=== PATIENT | male | born 1940 | race Caucasian/White ===

== ENCOUNTER 2016-04-30 21:19 | Inpatient (IN) | payer BC, MEDICARE ==
[~2016-04-30] VITALS: Ht 185.4 cm; Wt 123.4 kg
[2016-04-30 22:02] LABS: GLUCOSE,URINE NEGATIVE (NEG); NITRITE,URINE NEGATIVE (NEG); PROTEIN,URINE NEGATIVE (NEG-TRACE)
[2016-04-30 22:09] LABS: BILIRUBIN,URINE NEGATIVE (NEG)
[2016-04-30 22:12] LABS: BACTERIA,URINE 0 /HPF (0-FEW); RBC,URINE 0 /HPF (0-2); SQUAMOUS EPITHELIAL CELL,UR FEW /LPF; WBC,URINE RARE /HPF (0-4)
[2016-04-30] MEDS ORDERED: ONDANSETRON PF 4 MG/2 ML VIAL. IV ONE (22:15)
[2016-04-30] MEDS ORDERED: FENTANYL PF 100 MCG/2 ML VIAL. IV ONE (22:15)
[2016-04-30 22:16] LABS: BASO # 0.1 x10^3/uL (0.0-0.2); BASO % 1 % (0-3); EOS % 5 % (0-3); HEMATOCRIT 47.5 % (39.0-53.0); HEMOGLOBIN 15.3 g/dL (13.0-17.5); LYMPH # 1.8 x10^3/uL (1.0-4.8); LYMPH % 18 % (24-48); MEAN CORPUSCULAR HEMOGLOBIN 28 pg (25-35); MEAN CORPUSCULAR HGB CONC 32 g/dL (31-37); MEAN CORPUSCULAR VOLUME 87 fL (79-100); MONO % 10 % (0-9); NEUT % 65 % (31-73); PLATELET COUNT 286 x10^3/uL (140-400); RED BLOOD COUNT 5.44 x10^6/uL (4.30-5.70); RED CELL DISTRIBUTION WIDTH 15.4 % (11.5-14.5); WHITE BLOOD COUNT 9.9 x10^3/uL (4.0-11.0)
[2016-04-30 22:26] LABS: CALCIUM 8.8 mg/dL (8.5-10.1); CREATININE 0.9 mg/dL (0.7-1.3); GFR 82.3; POTASSIUM 3.4 mmol/L (3.5-5.1)
[2016-04-30] MEDS ORDERED: CONTRAST GIVEN MC PRN (22:45)
[2016-04-30] MEDS ORDERED: HYDROMORPHONE 2 MG/ML VIAL. IV ONE (23:00)
[2016-04-30] MEDS ORDERED: IOHEXOL 300 MG/ML 75 ML VIAL IV ONE (23:00)
--- NOTE | 2016-04-30 23:03 | RAD ---
PROCEDURE CT abdomen pelvis with intravenous contrast. HISTORY Severe left flank pain for 1 week. TECHNIQUE After administration of intravenous contrast only, 75 mL Omnipaque 300, CT of the abdomen and pelvis was performed. Exposure: One or more of the following individualized dose reduction techniques were utilized for this examination: 1. Automated exposure control. 2. Adjustment of the mA and/or kV according to patient size. 3. Use of iterative reconstruction technique. COMPARISON CT abdomen pelvis from April 07, 2015. FINDINGS Evaluation of enteric structures may be limited by lack of oral contrast. Images of lower chest demonstrate small pulmonary nodules with the largest in the right middle lobe measuring 6 millimeters, unchanged. Aortic valve calcifications are present. Liver, spleen, pancreas, gallbladder, and bilateral adrenal glands unremarkable. Bilateral kidneys enhance symmetrically. Interpolar region of the left kidney demonstrates 1.3 centimeter low-density lesion which appears to be cyst. Aortic atherosclerosis is seen. Urinary bladder is unremarkable. Prostate is mildly enlarged. There is no evidence of bowel obstruction or inflammation. Appendix is without evidence of inflammation. Fat containing right inguinal hernia. There is a left inguinal hernia containing fat and a portion of the sigmoid colon. There is no evidence of colonic obstruction by the hernia. Small fat containing umbilical hernia is also present. There is interval development of lymphadenopathy within the abdomen. A few examples include the largest right peripancreatic lymph node measures 2.2 x 2.5 centimeters in axial dimension. Largest right infrarenal aortocaval lymph node measures 2.9 x 1.4 centimeters in axial dimension. Left infrarenal periaortic lymph node measures 2.9 x 1.8 centimeters. In the root of the mesentery adjacent to and to the right of the superior mesenteric vein, there is a lymph ricky mass measuring 6.8 x 4.3 centimeters. More laterally in the right aspect of the mesentery, there is another lymph ricky mass measuring about 5.8 x 3.7 centimeters. IMPRESSION 1. Interval development of lymphadenopathy in the abdomen and pelvis. Neoplastic process is suspected such as lymphoma. Recommend clinical correlation. 2. Left inguinal hernia containing fat and sigmoid colon, similar to previous study. There is no evidence of bowel obstruction at this time. 3. Fat containing right inguinal hernia. 4. Small hiatal hernia. Electronically signed by: Eben Roman MD (Apr 30, 2016 23:02:50)
--- NOTE | 2016-04-30 23:09 | PHYS DOC ---
Past Medical History Past Medical History: High Cholesterol, Hypertension Additional Past Medical Histor: HEART MURMUR Past Surgical History: Knee Replacement Additional Past Surgical Histo: NECK SURGERY Alcohol Use: Rarely Drug Use: None Adult General Chief Complaint Chief Complaint: GENERALIZED BODY ACHES HPI HPI This is a 75-year-old male who presents with worsening lower back pain that he says is worse in the left flank region for the last week. Patient was in to see his primary care doctor, Dr. Rene, who thought the patient might be having muscle spasms for which she prescribed a course of muscle relaxants. Patient states this has not helped his pain whatsoever. He denies any trauma to the area. He denies any heavy lifting or straining that could cause his pain. He denies any radiation of the pain. He denies any inciting events for his pain he states he feels the same at rest or with exertion. Denies any nausea or vomiting. He denies any dysuria or hematuria. He additionally is being treated for an ongoing sinusitis for which she was prescribed Augmentin and Phenergan with codeine cough syrup. Review of Systems Review of Systems Constitutional: Denies fever or chills [] Eyes: Denies change in visual acuity, redness, or eye pain [] HENT: Denies nasal congestion or sore throat [] Respiratory: Denies cough or shortness of breath [] Cardiovascular: No additional information not addressed in HPI [] GI: Denies abdominal pain, nausea, vomiting, bloody stools or diarrhea [] : Denies dysuria or hematuria [] Musculoskeletal: Has back pain, denies joint pain [] Integument: Denies rash or skin lesions [] Neurologic: Denies headache, focal weakness or sensory changes [] Endocrine: Denies polyuria or polydipsia [] Current Medications Current Medications Current Medications Medications (Trade) Dose Ordered Sig/Hiro Start Time Stop Time Status Last Admin Dose Admin Acetaminophen (Tylenol) 650 mg PRN Q4HRS PRN 04/30/16 23:30 05/01/16 23:29 Fentanyl Citrate (Fentanyl 2ml Vial) 50 mcg 1X ONCE 04/30/16 22:15 04/30/16 22:16 DC 04/30/16 22:11 50 MCG Hydromorphone HCl (Dilaudid) 1 mg 1X ONCE 04/30/16 23:00 04/30/16 23:01 DC 04/30/16 23:00 1 MG Info (Do NOT chart on this entry -- for MONITORING) 1 each PRN DAILY PRN 04/30/16 22:45 05/02/16 22:44 Iohexol (Omnipaque 300 Mg/ml) 75 ml 1X ONCE 04/30/16 23:00 04/30/16 23:01 DC 04/30/16 22:41 75 ML Morphine Sulfate 4 mg PRN Q2HR PRN 04/30/16 23:30 05/01/16 23:29 Nitroglycerin (Nitrostat) 0.4 mg PRN Q5MIN PRN 04/30/16 23:30 05/01/16 23:29 Ondansetron HCl (Zofran) 4 mg PRN Q8HRS PRN 04/30/16 23:30 05/01/16 23:29 Allergies Allergies Allergies Coded Allergies Type Severity Reaction Last Updated Verified No Known Drug Allergies 07/03/13 No Physical Exam Physical Exam Constitutional: Well developed, well nourished, no acute distress, non-toxic appearance. [] HENT: Normocephalic, atraumatic, bilateral external ears normal, oropharynx moist, no oral exudates, nose normal. [] Eyes: PERRLA, EOMI, conjunctiva normal, no discharge. [] Neck: Normal range of motion, no tenderness, supple, no stridor. [] Cardiovascular:Heart rate regular rhythm, no murmur [] Lungs & Thorax: Bilateral breath sounds clear to auscultation [] Abdomen: Bowel sounds normal, soft, no tenderness, no masses, no pulsatile masses. [] Skin: Warm, dry, no erythema, no rash. [] Back: Moderate tenderness to the left lower back with no palpable swelling or deformity, moderate left CVA tenderness. [] Extremities: No tenderness, no cyanosis, no clubbing, ROM intact, no edema. [] Neurologic: Alert and oriented X 3, normal motor function, normal sensory function, no focal deficits noted. [] Psychologic: Affect normal, judgement normal, mood normal. [] Current Patient Data Vital Signs Vital Signs Date Time Temp Pulse Resp B/P Pulse Ox O2 Delivery O2 Flow Rate FiO2 04/30/16 23:00 20 04/30/16 22:32 84 138/81 92 Room Air 04/30/16 21:24 97.8 97.8 Lab Values Laboratory Tests Test 04/30/16 21:35 04/30/16 22:08 Urine Collection Type Unknown Urine Color Yellow Urine Clarity Clear Urine pH 6.0 Urine Specific [place] 1.025 Urine Protein Negativemg/dL (NEG-TRACE) Urine Glucose (UA) Negativemg/dL (NEG) Urine Ketones (Stick) Negativemg/dL (NEG) Urine Blood Negative (NEG) Urine Nitrite Negative (NEG) Urine Bilirubin Negative (NEG) Urine Urobilinogen Dipstick 1.0mg/dL (0.2 mg/dL) Urine Leukocyte Esterase Negative (NEG) Urine RBC 0/HPF (0-2) Urine WBC Rare/HPF (0-4) Urine Squamous Epithelial Cells Few/LPF Urine Bacteria 0/HPF (0-FEW) Urine Hyaline Casts Occasional/HPF Urine Mucus Marked/LPF White Blood Count 9.9x10^3/uL (4.0-11.0) Red Blood Count 5.44x10^6/uL (4.30-5.70) Hemoglobin 15.3g/dL (13.0-17.5) Hematocrit 47.5% (39.0-53.0) Mean Corpuscular Volume 87fL (79-100) Mean Corpuscular Hemoglobin 28pg (25-35) Mean Corpuscular Hemoglobin Concent 32g/dL (31-37) Red Cell Distribution Width 15.4% (11.5-14.5) H Platelet Count 286x10^3/uL (140-400) Neutrophils (%) (Auto) 65% (31-73) Lymphocytes (%) (Auto) 18% (24-48) L Monocytes (%) (Auto) 10% (0-9) H Eosinophils (%) (Auto) 5% (0-3) H Basophils (%) (Auto) 1% (0-3) Neutrophils # (Auto) 6.5x10^3uL (1.8-7.7) Lymphocytes # (Auto) 1.8x10^3/uL (1.0-4.8) Monocytes # (Auto) 1.0x10^3/uL (0.0-1.1) Eosinophils # (Auto) 0.5x10^3/uL (0.0-0.7) Basophils # (Auto) 0.1x10^3/uL (0.0-0.2) Sodium Level 146mmol/L (136-145) H Potassium Level 3.4mmol/L (3.5-5.1) L Chloride Level 107mmol/L (98-107) Carbon Dioxide Level 28mmol/L (21-32) Anion Gap 11 (6-14) Blood Urea Nitrogen 16mg/dL (8-26) Creatinine 0.9mg/dL (0.7-1.3) Estimated GFR (Cockcroft-Gault) 82.3 Glucose Level 112mg/dL (70-99) H Calcium Level 8.8mg/dL (8.5-10.1) Troponin I Quantitative 0.019ng/mL (0.000-0.055) Laboratory Tests 04/30/16 22:08 Laboratory Tests 04/30/16 22:08 EKG EKG EKG as interpreted by me shows a sinus rhythm with an occasional PVC and an approximate rate of 84 bpm. There are no obvious signs of ischemia on this EKG. Radiology/Procedures Radiology/Procedures CT of the abdomen/pelvis with IV contrast demonstrates the following: Evaluation of enteric structures may be limited by lack of oral contrast. Images of lower chest demonstrate small pulmonary nodules with the largest in the right middle lobe measuring 6 millimeters, unchanged. Aortic valve calcifications are present. Liver, spleen, pancreas, gallbladder, and bilateral adrenal glands unremarkable. Bilateral kidneys enhance symmetrically. Interpolar region of the left kidney demonstrates 1.3 centimeter low-density lesion which appears to be cyst. Aortic atherosclerosis is seen. Urinary bladder is unremarkable. Prostate is mildly enlarged. There is no evidence of bowel obstruction or inflammation. Appendix is without evidence of inflammation. Fat containing right inguinal hernia. There is a left inguinal hernia containing fat and a portion of the sigmoid colon. There is no evidence of colonic obstruction by the hernia. Small fat containing umbilical hernia is also present. There is interval development of lymphadenopathy within the abdomen. A few examples include the largest right peripancreatic lymph node measures 2.2 x 2.5 centimeters in axial dimension. Largest right infrarenal aortocaval lymph node measures 2.9 x 1.4 centimeters in axial dimension. Left infrarenal periaortic lymph node measures 2.9 x 1.8 centimeters. In the root of the mesentery adjacent to and to the right of the superior mesenteric vein, there is a lymph ricky mass measuring 6.8 x 4.3 centimeters. More laterally in the right aspect of the mesentery, there is another lymph ricky mass measuring about 5.8 x 3.7 centimeters. Course & Med Decision Making Course & Med Decision Making Pertinent Labs and Imaging studies reviewed. (See chart for details) 75-year-old male with ongoing left lower back pain that does radiate across his low back will receive a CT scan to rule out any acute abnormality. His labwork at this time is nonrevealing for any acute cause of his symptoms. Patient has required several IV doses of pain control to control his symptoms. His CT the abdomen pelvis with IV contrast has findings that are suspicious for neoplastic process and possible lymphoma. His case and these findings were discussed with the hospitalist, Dr. Michel, who agreed that the patient should be admitted and have hematology oncology consult. The patient will be admitted with as needed pain medication to get these findings fully evaluated. Dragon Disclaimer Dragon Disclaimer This electronic medical record was generated, in whole or in part, using a voice recognition dictation system. Departure Departure Impression: Primary Impression: Back pain Additional Impression: Lymphadenopathy Disposition: ADMITTED INPATIENT Admitting Physician: Other Condition: STABLE Referrals: EAMON KERR MD (PCP) Problem Qualifiers PRUDENCIO SOLIMAN DO Apr 30, 2016 23:08
[2016-04-30] MEDS ORDERED: ONDANSETRON PF 4 MG/2 ML VIAL. IV PRN (23:30)
[2016-04-30] MEDS ORDERED: MORPHINE SULFATE 4 MG/ML DISP.SYRIN. IV PRN (23:30)
[2016-04-30] MEDS ORDERED: NITROGLYCERIN SUBLINGUAL 0.4 MG BOTTLE OF 25. SL PRN (23:30)
[2016-04-30] MEDS ORDERED: ACETAMINOPHEN 325 MG TABLET. PO PRN (23:30)
[2016-05-01] VITALS (16 sets, daily range): BP systolic 126–172; BP diastolic 72–98
--- NOTE | 2016-05-01 00:08 | ACF ---
Admission Forms Criteria BACK PAIN Clinical Indications for Admission to Inpatient Care (Place 'X' for any and all applicable criteria): Admission is indicated for ANY ONE of the following (1)(2)(3)(4)(5)(6): [X ]I. Inpatient admission required rather than observation care (Also use Back Pain: Observation Care as appropriate) because of ANY ONE of the following [ X]a) Severe pain requiring acute inpatient management [ ]b) Immediate inpatient surgery [ ]c) Other condition, treatment or monitoring requiring inpatient admission [ ]II. Spine fracture with significant damage or threat of damage to vertebral column or spinal cord [ ]III. Progressive or severe neurologic deficit [ ]IV. Suspected spinal infection (e.g., epidural abscess, vertebral osteomyelitis)(10) [ ]V. Suspected cause requires inpatient treatment (eg, aortic dissection) [ ]. Cauda equina syndrome as indicated by ANY ONE of the following (9): [ ]a) Bowel dysfunction [ ]b) Bladder dysfunction [ ]c) Saddle anesthesia [ ]d) Neurologic abnormality suggesting cauda equina impingement Extended stay beyond goal length of stay may be needed for (3)(25): [ ]a) Spinal cord compression from stenosis, disk, or tumor (8)(9) [ ]b) Traumatic or pathologic vertebral fracture (33) [ ]c) Vertebral infection(10) [ ]d) Severe pain that is difficult to control [ ]e) Older patients(65 years or older) The original [employer] content created by [employer] has been revised. The portions of the content which have been revised are identified through the use of italic text or in bold, and [facility] has neither reviewed nor approved the modified material. All other unmodified content is copyright [employer]. Please see references footnoted in the original [employer] edition 2016 Admission Criteria Met?: Yes ARACELY LEWIS May 01, 2016 00:08
[2016-05-01 05:51] LABS: BASO # 0.1 x10^3/uL (0.0-0.2); BASO % 1 % (0-3); EOS % 6 % (0-3); HEMATOCRIT 46.3 % (39.0-53.0); HEMOGLOBIN 14.8 g/dL (13.0-17.5); LYMPH # 1.6 x10^3/uL (1.0-4.8); LYMPH % 17 % (24-48); MEAN CORPUSCULAR HEMOGLOBIN 28 pg (25-35); MEAN CORPUSCULAR HGB CONC 32 g/dL (31-37); MEAN CORPUSCULAR VOLUME 88 fL (79-100); MONO % 11 % (0-9); NEUT % 66 % (31-73); PLATELET COUNT 288 x10^3/uL (140-400); RED BLOOD COUNT 5.25 x10^6/uL (4.30-5.70); RED CELL DISTRIBUTION WIDTH 15.5 % (11.5-14.5); WHITE BLOOD COUNT 9.5 x10^3/uL (4.0-11.0)
[2016-05-01 06:32] LABS: ALBUMIN 3.4 g/dL (3.4-5.0); DIRECT BILIRUBIN 0.2 mg/dL (0.0-0.2); TOTAL BILIRUBIN 0.8 mg/dL (0.2-1.0); URIC ACID 4.7 mg/dL (3.5-7.2)
[2016-05-01 06:38] LABS: CALCIUM 8.6 mg/dL (8.5-10.1); CREATININE 0.8 mg/dL (0.7-1.3); GFR 94.2; POTASSIUM 3.6 mmol/L (3.5-5.1)
--- NOTE | 2016-05-01 06:41 | EKG ---
[facility] [address] [place] [address] Test Date: 2016-04-30 Test Time: 22:11:11 Pat Name: JORDAN AGUAYO Department: Room: 526 1 Gender: M [employer] Professor: : 1940 Requested By: PRUDENCIO SOLIMAN Order Number: [id number] Reading MD: Chasity Henson Measurements Intervals [place] Rate: 84 P: -22 CA: 142 QRS: 35 QRSD: 98 T: 58 QT: 398 QTc: 474 Interpretive Statements SINUS RHYTHM VENTRICULAR PREMATURE COMPLEX(ES) LEFT ATRIAL ABNORMALITY ABNORMAL ECG Electronically Signed On 05-03-2016 20:07:11 [employer] by Chasity Henson
[2016-05-01] MEDS ORDERED: ALBUTEROL SULFATE 2.5 MG/3 ML NEBU. NEB PRN (08:15)
[2016-05-01 08:38] LABS: INR 1.2 (0.8-1.1); PROTHROMBIN TIME PATIENT 14.2 SEC (11.7-14.0)
[2016-05-01] MEDS: FINASTERIDE 5 MG TABLET PO SCH (08:57)
[2016-05-01] MEDS: PANTOPRAZOLE 40 MG TABLET. PO SCH (08:57)
[2016-05-01] MEDS: AMLODIPINE BESYLATE 10 MG TABLET PO SCH (08:58)
[2016-05-01] MEDS ORDERED: IOHEXOL 300 MG/ML 75 ML VIAL IV ONE (09:00)
[2016-05-01] MEDS ORDERED: CONTRAST GIVEN MC PRN (09:00)
--- NOTE | 2016-05-01 09:04 | PDOC ---
Provider Note Provider Note Onc consult dictated- [id number] Diffuse abdominal adenopathy concerning for malignancy Left inguinal hernia with worsening pain Plan: - LDH, uric acid, hepatitis panel, LFTs ordered - CT chest - IR bx - Gen surg consult Ok to DC when above completed. My office will call to set up f/u late next week to review path. Pt eager to DC. Thank you. ZAC DAMIAN DO May 01, 2016 09:04
--- NOTE | 2016-05-01 09:47 | PDOC1 ---
History and Physical Date of Admission Date of Admission DATE: 04/30/16 Identification/Chief Complaint Chief Complaint Back Pain Source Source: Patient History of Present Illness History of Present Illness Pt states that he came to the emergency room last night because of 1 week's duration of low back pain. Pain does not radiate. Denies sciatica. Pt was found in the ER to have mesenteric lymphadenopathy and bilateral inguinal hernias. Pt says that the he has had decreased appetite over the last 2 weeks, nasal congestion with clear drainage, cough with clear productive sputum. He says that he has otherwise been doing well. Past Medical History Cardiovascular: HTN, Hyperlipidemia, Other (Mild aortic stenosis) Pulmonary: Asthma GI: No pertinent hx Heme/Onc: No pertinent hx Hepatobiliary: No pertinent hx Psych: No pertinent hx Musculoskeletal: low back pain Rheumatologic: No pertinent hx Infectious disease: No pertinent hx ENT: No pertinent hx Renal/: No pertinent hx Endocrine: No pertinent hx Dermatology: No pertinent hx Past Surgical History Past Surgical History: Total knee replacement, Other (neck surgery) Family History Family History: Heart Disease, Other (Aneurysm) Social History Smoke: No ALCOHOL: none Drugs: None Current Problem List Problem List Problems Medical Problems: (1) Back pain Status: Acute (2) Lymphadenopathy Status: Acute Problems: Current Medications Current Medications Current Medications Fentanyl Citrate (Fentanyl 2ml Vial) 50 mcg 1X ONCE IV Last administered on 22:11; Start 04/30/16 at 22:15; Stop 04/30/16 at 22:16; Status DC Ondansetron HCl (Zofran) 4 mg 1X ONCE IV Last administered on 04/30/16 22:12 ; Start 04/30/16 at 22:15; Stop 04/30/16 at 22:16; Status DC Iohexol (Omnipaque 300 Mg/ml) 75 ml 1X ONCE IV Last administered on 04/30/16 22:41; Start 04/30/16 at 23:00; Stop 04/30/16 at 23:01; Status DC Info (Do NOT chart on this entry -- for MONITORING) 1 each PRN DAILY PRN MC SEE COMMENTS; Start 04/30/16 at 22:45; Stop 05/02/16 at 22:44 Hydromorphone HCl (Dilaudid) 1 mg 1X ONCE IV Last administered on 04/30/16 23 :00; Start 04/30/16 at 23:00; Stop 04/30/16 at 23:01; Status DC Ondansetron HCl (Zofran) 4 mg PRN Q8HRS PRN IV NAUSEA/VOMITING; Start 04/30/16 at 23:30; Stop 05/01/16 at 23:29 Morphine Sulfate 4 mg PRN Q2HR PRN IV SEVERE PAIN; Start 04/30/16 at 23:30; Stop 05/01/16 at 23:29 Acetaminophen (Tylenol) 650 mg PRN Q4HRS PRN PO FEVER; Start 04/30/16 at 23:30 ; Stop 05/01/16 at 23:29 Nitroglycerin (Nitrostat) 0.4 mg PRN Q5MIN PRN SL CHEST PAIN; Start 04/30/16 at 23:30; Stop 05/01/16 at 23:29 Albuterol Sulfate (Ventolin Neb Soln) 2.5 mg PRN Q6HRS PRN NEB SHORTNESS OF BREATH; Start 05/01/16 at 08:15 Finasteride (Proscar) 5 mg DAILY PO Last administered on 05/01/16 08:57; Start 05/01/16 at 09:00 Pantoprazole Sodium (Protonix) 40 mg DAILYAC PO Last administered on 05/01/16 08:57; Start 05/01/16 at 08:30 Atorvastatin Calcium (Lipitor) 20 mg QHS PO ; Start 05/01/16 at 21:00 Amlodipine Besylate (Norvasc) 10 mg DAILY PO Last administered on 05/01/16 08: 58; Start 05/01/16 at 09:00 Iohexol (Omnipaque 300 Mg/ml) 75 ml 1X ONCE IV Last administered on 05/01/16 09:13; Start 05/01/16 at 09:00; Stop 05/01/16 at 09:01; Status DC Info (Do NOT chart on this entry -- for MONITORING) 1 each PRN DAILY PRN MC SEE COMMENTS; Start 05/01/16 at 09:00; Stop 05/03/16 at 08:59 Allergies Allergies: Coded Allergies: No Known Drug Allergies (Unverified , 07/03/13) ROS General: YES: Appetite, No: Chills, Night Sweats PSYCHOLOGICAL ROS: No: Anxiety, Depression Eyes: No Decreased vision, No Eye Pain HEENT: YES: Nasal congestion, Nasal discharge, No: Sinus pain, Sore Throat ALLERGY AND IMMUNOLOGY: No: Hives, Post Nasal Drip Hematological and Lymphatic: No: Bleeding Problems, Blood Clots Respiratory: YES: Cough, No: Shortness of breath, Sputum Changes, Wheezing Cardiovascular: No Chest Pain, No Edema Gastrointestinal: No Abdominal Pain, No Constipation, No Diarrhea, No Nausea, No Vomiting Genitourinary: No Dysuria, No Urgency Musculoskeletal: No Joint Pain, No Muscle Pain Neurological: No Numbness/Tingling, No Weakness Skin: No Rash, No Skin Lesion Changes Physical Exam General: Alert, Oriented X3, Cooperative, No acute distress HEENT: Atraumatic, PERRLA, EOMI, Mucous membr. moist/pink Lungs: Clear to auscultation, Normal air movement Heart: RRR, other (systolic ejection murmur heard throughout) Abdomen: Normal bowel sounds, Soft, No tenderness, No hepatosplenomegaly Extremities: No clubbing, No cyanosis, No edema Skin: No rashes, No significant lesion Neuro: Normal gait, Normal speech, Cranial nerves 3-12 NL Psych/Mental Status: Mental status NL, Mood NL Vitals Vitals Vital Signs Date Time Temp Pulse Resp B/P Pulse Ox O2 Delivery O2 Flow Rate FiO2 05/01/16 08:58 84 172/98 05/01/16 07:49 Room Air 92.0 05/01/16 07:00 98.8 20 91 98.8 Labs Labs Laboratory Tests Test 04/30/16 21:35 04/30/16 22:08 05/01/16 04:50 Urine Collection Type Unknown Urine Color Yellow Urine Clarity Clear Urine pH 6.0 Urine Specific [place] 1.025 Urine Protein Negativemg/dL (NEG-TRACE) Urine Glucose (UA) Negativemg/dL (NEG) Urine Ketones (Stick) Negativemg/dL (NEG) Urine Blood Negative (NEG) Urine Nitrite Negative (NEG) Urine Bilirubin Negative (NEG) Urine Urobilinogen Dipstick 1.0mg/dL (0.2 mg/dL) Urine Leukocyte Esterase Negative (NEG) Urine RBC 0/HPF (0-2) Urine WBC Rare/HPF (0-4) Urine Squamous Epithelial Cells Few/LPF Urine Bacteria 0/HPF (0-FEW) Urine Hyaline Casts Occasional/HPF Urine Mucus Marked/LPF White Blood Count 9.9x10^3/uL (4.0-11.0) 9.5x10^3/uL (4.0-11.0) Red Blood Count 5.44x10^6/uL (4.30-5.70) 5.25x10^6/uL (4.30-5.70) Hemoglobin 15.3g/dL (13.0-17.5) 14.8g/dL (13.0-17.5) Hematocrit 47.5% (39.0-53.0) 46.3% (39.0-53.0) Mean Corpuscular Volume 87fL (79-100) 88fL (79-100) Mean Corpuscular Hemoglobin 28pg (25-35) 28pg (25-35) Mean Corpuscular Hemoglobin Concent 32g/dL (31-37) 32g/dL (31-37) Red Cell Distribution Width 15.4% (11.5-14.5) 15.5% (11.5-14.5) Platelet Count 286x10^3/uL (140-400) 288x10^3/uL (140-400) Neutrophils (%) (Auto) 65% (31-73) 66% (31-73) Lymphocytes (%) (Auto) 18% (24-48) 17% (24-48) Monocytes (%) (Auto) 10% (0-9) 11% (0-9) Eosinophils (%) (Auto) 5% (0-3) 6% (0-3) Basophils (%) (Auto) 1% (0-3) 1% (0-3) Neutrophils # (Auto) 6.5x10^3uL (1.8-7.7) 6.3x10^3uL (1.8-7.7) Lymphocytes # (Auto) 1.8x10^3/uL (1.0-4.8) 1.6x10^3/uL (1.0-4.8) Monocytes # (Auto) 1.0x10^3/uL (0.0-1.1) 1.0x10^3/uL (0.0-1.1) Eosinophils # (Auto) 0.5x10^3/uL (0.0-0.7) 0.5x10^3/uL (0.0-0.7) Basophils # (Auto) 0.1x10^3/uL (0.0-0.2) 0.1x10^3/uL (0.0-0.2) Sodium Level 146mmol/L (136-145) 145mmol/L (136-145) Potassium Level 3.4mmol/L (3.5-5.1) 3.6mmol/L (3.5-5.1) Chloride Level 107mmol/L (98-107) 108mmol/L (98-107) Carbon Dioxide Level 28mmol/L (21-32) 27mmol/L (21-32) Anion Gap 11 (6-14) 10 (6-14) Blood Urea Nitrogen 16mg/dL (8-26) 14mg/dL (8-26) Creatinine 0.9mg/dL (0.7-1.3) 0.8mg/dL (0.7-1.3) Estimated GFR (Cockcroft-Gault) 82.3 94.2 Glucose Level 112mg/dL (70-99) 99mg/dL (70-99) Calcium Level 8.8mg/dL (8.5-10.1) 8.6mg/dL (8.5-10.1) Troponin I Quantitative 0.019ng/mL (0.000-0.055) Prothrombin Time 14.2SEC (11.7-14.0) Prothromb Time International Ratio 1.2 (0.8-1.1) Uric Acid 4.7mg/dL (3.5-7.2) Total Bilirubin 0.8mg/dL (0.2-1.0) Direct Bilirubin 0.2mg/dL (0.0-0.2) Aspartate Amino Transf (AST/SGOT) 18U/L (15-37) Alanine Aminotransferase (ALT/SGPT) 19U/L (16-63) Alkaline Phosphatase 85U/L (46-116) Lactate Dehydrogenase 582U/L (85-227) Total Protein 7.0g/dL (6.4-8.2) Albumin 3.4g/dL (3.4-5.0) Laboratory Tests Test 04/30/16 21:35 04/30/16 22:08 05/01/16 04:50 Urine Collection Type Unknown Urine Color Yellow Urine Clarity Clear Urine pH 6.0 Urine Specific [place] 1.025 Urine Protein Negativemg/dL (NEG-TRACE) Urine Glucose (UA) Negativemg/dL (NEG) Urine Ketones (Stick) Negativemg/dL (NEG) Urine Blood Negative (NEG) Urine Nitrite Negative (NEG) Urine Bilirubin Negative (NEG) Urine Urobilinogen Dipstick 1.0mg/dL (0.2 mg/dL) Urine Leukocyte Esterase Negative (NEG) Urine RBC 0/HPF (0-2) Urine WBC Rare/HPF (0-4) Urine Squamous Epithelial Cells Few/LPF Urine Bacteria 0/HPF (0-FEW) Urine Hyaline Casts Occasional/HPF Urine Mucus Marked/LPF White Blood Count 9.9x10^3/uL (4.0-11.0) 9.5x10^3/uL (4.0-11.0) Red Blood Count 5.44x10^6/uL (4.30-5.70) 5.25x10^6/uL (4.30-5.70) Hemoglobin 15.3g/dL (13.0-17.5) 14.8g/dL (13.0-17.5) Hematocrit 47.5% (39.0-53.0) 46.3% (39.0-53.0) Mean Corpuscular Volume 87fL (79-100) 88fL (79-100) Mean Corpuscular Hemoglobin 28pg (25-35) 28pg (25-35) Mean Corpuscular Hemoglobin Concent 32g/dL (31-37) 32g/dL (31-37) Red Cell Distribution Width 15.4% (11.5-14.5) 15.5% (11.5-14.5) Platelet Count 286x10^3/uL (140-400) 288x10^3/uL (140-400) Neutrophils (%) (Auto) 65% (31-73) 66% (31-73) Lymphocytes (%) (Auto) 18% (24-48) 17% (24-48) Monocytes (%) (Auto) 10% (0-9) 11% (0-9) Eosinophils (%) (Auto) 5% (0-3) 6% (0-3) Basophils (%) (Auto) 1% (0-3) 1% (0-3) Neutrophils # (Auto) 6.5x10^3uL (1.8-7.7) 6.3x10^3uL (1.8-7.7) Lymphocytes # (Auto) 1.8x10^3/uL (1.0-4.8) 1.6x10^3/uL (1.0-4.8) Monocytes # (Auto) 1.0x10^3/uL (0.0-1.1) 1.0x10^3/uL (0.0-1.1) Eosinophils # (Auto) 0.5x10^3/uL (0.0-0.7) 0.5x10^3/uL (0.0-0.7) Basophils # (Auto) 0.1x10^3/uL (0.0-0.2) 0.1x10^3/uL (0.0-0.2) Sodium Level 146mmol/L (136-145) 145mmol/L (136-145) Potassium Level 3.4mmol/L (3.5-5.1) 3.6mmol/L (3.5-5.1) Chloride Level 107mmol/L (98-107) 108mmol/L (98-107) Carbon Dioxide Level 28mmol/L (21-32) 27mmol/L (21-32) Anion Gap 11 (6-14) 10 (6-14) Blood Urea Nitrogen 16mg/dL (8-26) 14mg/dL (8-26) Creatinine 0.9mg/dL (0.7-1.3) 0.8mg/dL (0.7-1.3) Estimated GFR (Cockcroft-Gault) 82.3 94.2 Glucose Level 112mg/dL (70-99) 99mg/dL (70-99) Calcium Level 8.8mg/dL (8.5-10.1) 8.6mg/dL (8.5-10.1) Troponin I Quantitative 0.019ng/mL (0.000-0.055) Prothrombin Time 14.2SEC (11.7-14.0) Prothromb Time International Ratio 1.2 (0.8-1.1) Uric Acid 4.7mg/dL (3.5-7.2) Total Bilirubin 0.8mg/dL (0.2-1.0) Direct Bilirubin 0.2mg/dL (0.0-0.2) Aspartate Amino Transf (AST/SGOT) 18U/L (15-37) Alanine Aminotransferase (ALT/SGPT) 19U/L (16-63) Alkaline Phosphatase 85U/L (46-116) Lactate Dehydrogenase 582U/L (85-227) Total Protein 7.0g/dL (6.4-8.2) Albumin 3.4g/dL (3.4-5.0) VTE Prophylaxis Ordered VTE Prophylaxis Devices: Yes VTE Pharmacological Prophylaxi: No Assessment/Plan Assessment/Plan Pt is a 75yoM admitted with concerns for neoplasm 1)Unknown neoplasm- CT abdomen showed lymphadenopathy in the abdomen/pelvis with concern for possible lymphoma, and is now s/p bx. Heme/Onc following. Pt has morphine for pain relief 2)HLD- pt continued on Atorvastatin 20mg 3)HTN- pt continued on Norvasc 10mg. Losartan 100mg currently being held 4)Hypernatremia- resolved 5)Hypokalemia- resolved 6)Inguinal hernias bilateral- incarcerated left inguinal hernia repair performed today by AMEE Weaver MD May 01, 2016 09:47
[2016-05-01] MEDS ORDERED: CEFAZOLIN 2GM PREMIX 50 ML IV ONE (12:30)
[2016-05-01] MEDS ORDERED: IV RINGERS,LACTATED 1000ML 1,000 ML IV SCH (12:59)
[2016-05-01] MEDS ORDERED: PROCHLORPERAZINE 10 MG/2 ML VIAL. IV PRN (13:00)
[2016-05-01] MEDS ORDERED: HYDROMORPHONE 2 MG/ML VIAL. IV PRN (13:00)
[2016-05-01] MEDS ORDERED: FENTANYL PF 100 MCG/2 ML VIAL. IV PRN ×2 (13:00)
[2016-05-01] MEDS ORDERED: ONDANSETRON PF 4 MG/2 ML VIAL. IV PRN (13:00)
[2016-05-01] MEDS ORDERED: LIDOCAINE 1% 1 ML SYRINGE. ID PRN (13:00)
[2016-05-01] MEDS ORDERED: MORPHINE SULFATE 2 MG/ML DISP.SYRIN. IV PRN (13:00)
[2016-05-01] MEDS ORDERED: MIDAZOLAM HCL 2 MG/2 ML VIAL. ONE (13:22)
[2016-05-01] MEDS ORDERED: BUPIVACAINE-EPI 0.5%-1:200000 50 ML VIAL. ONE (13:23)
[2016-05-01] MEDS ORDERED: GELATIN SPONGE SIZE 12-7MM SPONGE. ONE (13:42)
[2016-05-01] MEDS ORDERED: FENTANYL PF 100 MCG/2 ML VIAL. IV ONE (13:45)
[2016-05-01] MEDS ORDERED: MIDAZOLAM HCL 2 MG/2 ML VIAL. IV ONE (13:45)
[2016-05-01] MEDS ORDERED: LIDOCAINE 1% / SOD BICARB 8.4% 20 ML VIAL. IJ ONE (13:45)
--- NOTE | 2016-05-01 13:51 | PDOC ---
BRIEF OPERATIVE NOTE Pre-Op Diagnosis mesenteric lymphadenopathy Post-Op Diagnosis same Procedure Performed CT mesenteric biopsy Surgeon Lonnie Anesthesia Type: Conscious Sedation Specimens Obtained 4 x 18g cores in formalin and rpmi Complications No immediate EDIN DOTY MD May 01, 2016 13:51
--- NOTE | 2016-05-01 13:52 | PDOC ---
MODERATE SEDATION ASSESSMENT RISKS/ALTERNATIVES Risks/Alternatives Risks and alternatives of this type of sedation and procedure discussed with: RISK/ALTERNATIVES: Patient H & P ON CHART H & P H & P on chart and reviewed for co-morbid conditions and appropriate labs. H&P ON CHART: Yes STATUS PREG STATUS ASSESSED: Yes MEDS/ALLERGIES REVIEWED Meds/Allergies Reviewed Medications and Allergies including time and route of recently administered narcotics and sedatives. MEDS/ALLERGIES REVIEWED: Yes ASA RATING ASA RATING: II AIRWAY ASSESSMENT Airway Assessment Airway patency, oral function limitations, presence of caps, crowns, dentures, partials, and ability to extend neck assessed. AIRWAY ASSESSMENT: Yes MALLAMPATI SCORE MALLAMPATI SCORE: II PRE-SEDATION ASSESSMENT PRE-SEDATION ASSESSMENT: Yes EDIN DOTY MD May 01, 2016 13:51
--- NOTE | 2016-05-01 14:06 | RAD ---
Chest CT with contrast Indications: Abdominal lymphadenopathy seen on abdomen and pelvis CT study dated April 30, 2016. Staging of lymphoma. Technique: After IV infusion of 75 mL of Omnipaque 300, helical CT scanning of the chest was performed. Multiplanar 2-D reconstructions were generated. PQRS Compliance Statement: One or more of the following individualized dose reduction techniques were utilized for this examination: 1. Automated exposure control 2. Adjustment of the mA and KV according to patient size 3. Use of iterative reconstruction technique Comparison: No previous chest CT. Findings: No enlarged axillary lymphadenopathy is seen. No significantly enlarged mediastinal lymph nodes are seen. No hilar lymphadenopathy is seen. No focal aneurysmal dilatation or dissection of the thoracic aorta is seen. The heart size is normal. Calcified atheromatous disease of the coronary arteries is seen. There is calcification of the aortic leaflets which may be seen with aortic valvular disease. No pericardial effusion is seen. No lung consolidation or lung mass is seen. No pleural effusion or pneumothorax is seen. The proximal bronchial tree is patent. Old healed right second and 6tht rib fractures are seen. No osteolytic process is seen. IMPRESSION: No thoracic lymphadenopathy. Calcified atheromatous disease of the coronary arteries. Calcification of aortic valve leaflets which may be seen with aortic valvular disease. Normal heart size. No pericardial effusion. No acute lung infiltrate.
[2016-05-01] MEDS ORDERED: FENTANYL PF 250 MCG/5 ML VIAL. ONE (14:10)
[2016-05-01] MEDS ORDERED: ROCURONIUM 50 MG/5 ML VIAL. ONE (14:14)
[2016-05-01] MEDS ORDERED: ONDANSETRON PF 4 MG/2 ML VIAL. ONE (14:14)
[2016-05-01] MEDS ORDERED: DEXAMETHASONE SOD PHOS 20 MG/5 ML VIAL. ONE (14:14)
[2016-05-01] MEDS ORDERED: LIDOCAINE 2% 100 MG/5 ML DISP.SYRIN. ONE (14:14)
[2016-05-01] MEDS ORDERED: PROPOFOL 20 ML IV ONE ×2 (14:14→15:29)
[2016-05-01] MEDS ORDERED: PHENYLEPHRINE in 0.9% NACL PF 1 MG/10 ML DISP.SYRIN. IV ONE (14:32)
[2016-05-01] MEDS ORDERED: SEVOFLURANE 61 TO 120 MINUTES. IH ONE (14:32)
[2016-05-01] MEDS ORDERED: EPHEDRINE PF IN SALINE 50 MG/5 ML DISP.SYRIN. IV ONE (14:40)
[2016-05-01] MEDS ORDERED: LIDOCAINE 2% JELLY 6ML IN APPLICATOR. MM ONE (15:37)
--- NOTE | 2016-05-01 16:04 | PDOC ---
BRIEF OPERATIVE NOTE Date: May 01, 2016 Pre-Op Diagnosis incarcerated left inguinal hernia Post-Op Diagnosis same, indirect Procedure Performed repair with mesh Surgeon Jose Anesthesia Type: General Blood Loss 25cc IV Fluid 1200cc Urine Output 250cc Specimens Obtained none Findings indirect hernia Complications none Additional Remarks # [id number] KAELYN MORFIN MD May 01, 2016 16:04
--- NOTE | 2016-05-01 16:48 | OP ---
DATE OF SURGERY: 05/01/2016 PREOPERATIVE DIAGNOSIS: Incarcerated left inguinal hernia. POSTOPERATIVE DIAGNOSIS: Incarcerated left inguinal hernia, indirect. PROCEDURE: Repair with mesh. SURGEON: Kaelyn Morfin MD ANESTHESIA: General. ESTIMATED BLOOD LOSS: 25. IV FLUID: 1200. URINE OUTPUT: 250. INDICATIONS: The patient is a 75-year-old obese male with left inguinal pain and a CT scan showing a left inguinal hernia containing sigmoid colon. He is brought for repair. OPERATIVE FINDINGS: He had an indirect inguinal hernia containing abdominal contents. DESCRIPTION OF PROCEDURE: The patient brought to the operating suite, given a general LMA and the abdomen was prepped and draped in usual sterile fashion. Marcaine 0.5% with epinephrine was used to infiltrate the skin and subcutaneous tissue along the incision line. Incision was made and dissection carried down to the external oblique fascia. Bleeders were cauterized or tied as identified. The fascia was opened in the direction of its fibers, extended through the external ring, taking care to avoid injury to underlying structures. The cord structures were swept off the pubis. A Brunswick drain placed around it and the large indirect hernia sac was freed from the remainder of the cord, skeletonized, and reduced. This was held in reduction with a plug of mesh, tacked with 2-0 PDS, taking care to avoid injury to adjacent vessels. The precut "keyhole" patch was then placed over the floor of the canal. The slit closed with a single 2-0 PDS stitch and the area checked for adequate hemostasis. ____ and a correct sponge count had been obtained. The cord was returned to its normal anatomical position and the external oblique fascia closed over in running fashion with 3-0 Vicryl. Subq approximated with 3-0 Vicryl. Skin closed with subcuticular 4-0 Monocryl. Steri-Strips and sterile dressing applied. Prior to emergence from anesthesia, digital rectal exam revealed a small firm, non-nodular prostate. At completion of the procedure, the Mars catheter drainage bag was empty. The catheter was removed and some blood appeared at the meatus. In light of this, a 16-Yoruba coude catheter was placed to assure drainage of the patient's bladder and immediately delivered approximately 250 mL of slightly bloody urine. The catheter was left to dependent drainage. The patient was awakened from his anesthetic and taken to the recovery room in satisfactory condition. KAELYN MORFIN MD DR: NAE/gurmeet JOB#: [id number] / [id number]
--- NOTE | 2016-05-01 17:54 | RAD ---
Procedure: CT-guided abdominal biopsy Clinical Indication: 75-year-old with multiple mesenteric and retroperitoneal lymph nodes which are pathologically enlarged. Sedation: Conscious sedation was administered for 20 minutes. The patient was monitored by a qualified independent observer throughout the time of sedation. Please refer to the medical record for exact doses of medications utilized to achieve moderate sedation. Antibiotics: None Sterility: The procedure was performed in its entirety using appropriate elements of sterile technique. Consent: The procedure was explained in its entirety to the patient or the patients designated commercial representative by a member of the treatment team, including a discussion of the risks, benefits and commonly accepted alternatives to the procedure, as well as the expected consequences of no therapy whatsoever. Discussion of the risks included, but was not limited to, those that are most frequent and those that are rare but possibly severe or life-threatening, as well as the possibility of unforeseen complications. Technique and Findings: Following informed consent, the patient was prepped and draped in usual sterile fashion. Preliminary CT scan of the area of interest was performed. 1% lidocaine was used to achieve local anesthesia. A small dermatotomy was made. Under periodic CT surveillance, a 17-gauge needle guide was advanced to the dominant mass in the central mesentery. 4 x 18-gauge core biopsy specimens were then obtained and divided between formalin and RPMI. Gelfoam pledgets were applied as the needle guide was removed and hemostasis was achieved with manual compression. Complications: No immediate Impression: 1. CT-guided abdominal lymph node biopsy as described PQRS Compliance Statement: One or more of the following individualized dose reduction techniques were utilized for this examination: 1. Automated exposure control 2. Adjustment of the mA and/or kV according to patient size 3. Use of iterative reconstruction technique
[2016-05-01] MEDS ORDERED: ATORVASTATIN CALCIUM 20 MG TABLET PO SCH (21:00)
--- NOTE | 2016-05-01 21:27 | CONS ---
DATE OF CONSULTATION: 05/01/2016 REFERRING PROVIDER: Dr. Whit Damian. REASON FOR CONSULTATION: Adenopathy. HISTORY OF PRESENT ILLNESS: The patient is a 75-year-old male who presented to the Emergency Room last night with back pain for 1 week. He also reports chronic dizziness over the last several months when he has a lot of activity, sitting down to rest helps it. He has not had any fevers, chills, unintentional weight loss, notable adenopathy or abdominal pain. His CT abdomen/pelvis in the Emergency Room showed new diffuse adenopathy with some areas measuring up to 6.8 cm in the abdominal region. This was all new since his last scan in 03/2015. He was also noted to have a non-incarcerated left inguinal hernia; however, he does report worsening intermittent pain in this area. PAST MEDICAL HISTORY: Hypertension, hyperlipidemia. PAST SURGICAL HISTORY: Hammertoe surgery, neck surgery, left knee replacement, and TURP. FAMILY HISTORY: Mom with "heart problems." Dad with an aneurysm. Brother had prostate cancer, but is still alive and well. SOCIAL HISTORY: He is , very active at baseline, retired from [employer]. No tobacco, alcohol or drug use. ALLERGIES: No known drug allergies. CURRENT MEDICATIONS: Tylenol, albuterol, Norvasc, atorvastatin, finasteride, morphine, nitroglycerin, Zofran, pantoprazole. REVIEW OF SYSTEMS: A 12-point review of systems completed and unremarkable with the exception of the back pain for 1 week. This is now controlled with pain medications this admission. He also has had some intermittent left groin pain. Otherwise, his review of systems is negative. PHYSICAL EXAMINATION: VITAL SIGNS: Temperature 98.8, pulse 84, respiratory rate 20, blood pressure 143/82, 91% O2 on room air. GENERAL: He is alert and oriented, in no distress at this time. HEENT: Extraocular muscle strength is intact. Mucous membranes are moist. CARDIOVASCULAR: Heart is regular in rhythm and rate. LUNGS: Clear to auscultation bilaterally. ABDOMEN: Obese, nontender, no palpable masses. EXTREMITIES: No edema. NEUROLOGIC: No focal deficits. LYMPH: No palpable cervical or supraclavicular adenopathy. SKIN: He does have several seborrheic keratoses on his back with also a few erythematous papules. IMAGING AND LABORATORY DATA: CBC and CMP were unremarkable. I added on uric acid, which is also normal at 4.3. LDH slightly elevated at 582. CT abdomen/pelvis again reviewed with new adenopathy as above. ASSESSMENT AND PLAN: The patient is a 75-year-old male with the following medical problems: 1. Diffuse abdominal adenopathy concerning for possible underlying malignancy such as lymphoma. I have ordered a CT chest for full staging and also an IR-guided biopsy of one of lymph nodes which I think will occur today. If these tests are completed, he can be discharged home as his pain is now controlled and I will set up followup with him late next week to review the pending pathology results. 2. Left inguinal hernia with worsening intermittent pain. I have consulted general surgery. 3. Back pain, controlled with current pain medications. Thank you for this consultation. Again, from a hematologic standpoint, he can be discharged once these tests are completed and I will follow up as an outpatient next week. ZAC DAMIAN DO DR: Alex JOB#: [id number] / [id number] KARON
[2016-05-01 22:13] LABS: HEP A IGM ABDY Negative (Negative)
[2016-05-02] MEDS ORDERED: MORPHINE SULFATE 4 MG/ML DISP.SYRIN. IV PRN (00:15)
[2016-05-02 03:47] VITALS: BP 130/75
[2016-05-02 06:08] LABS: CALCIUM 8.4 mg/dL (8.5-10.1); CREATININE 0.7 mg/dL (0.7-1.3); GFR 109.9; POTASSIUM 4.1 mmol/L (3.5-5.1)
[2016-05-02] MEDS: MORPHINE SULFATE 4 MG/ML DISP.SYRIN. IV PRN ×2 (06:30→09:14)
[2016-05-02 07:00] VITALS: BP 143/71
[2016-05-02] MEDS: PANTOPRAZOLE 40 MG TABLET. PO SCH (08:17)
[2016-05-02] MEDS: AMLODIPINE BESYLATE 10 MG TABLET PO SCH (08:18)
[2016-05-02] MEDS: FINASTERIDE 5 MG TABLET PO SCH (08:18)
--- NOTE | 2016-05-02 09:40 | PDOC ---
SURGICAL PROGRESS NOTE Subjective tolerating regular diet no nausea incisional pain Vital Signs Vital Signs Date Time Temp Pulse Resp B/P Pulse Ox O2 Delivery O2 Flow Rate FiO2 05/02/16 09:14 20 Room Air 05/02/16 08:18 67 143/71 05/02/16 07:00 98.0 93 98.0 05/01/16 22:51 3.5 I&O Intake and Output 05/02/16 07:00 Intake Total 1470 ml Output Total 980 ml Balance 490 ml Intake Oral 120 ml IV Total 1350 ml Output Urine Total 935 ml Drainage Total 20 ml Estimated Blood Loss 25 ml # Bowel Movements 1 General: Alert, Oriented X3, Cooperative, No acute distress Abdomen: Soft, Other (LIH repair dressing dry) Labs Laboratory Tests Test 04/30/16 21:35 04/30/16 22:08 05/01/16 04:50 05/02/16 04:55 Urine Collection Type Unknown Urine Color Yellow Urine Clarity Clear Urine pH 6.0 Urine Specific Olar 1.025 Urine Protein Negativemg/dL (NEG-TRACE) Urine Glucose (UA) Negativemg/dL (NEG) Urine Ketones (Stick) Negativemg/dL (NEG) Urine Blood Negative (NEG) Urine Nitrite Negative (NEG) Urine Bilirubin Negative (NEG) Urine Urobilinogen Dipstick 1.0mg/dL (0.2 mg/dL) Urine Leukocyte Esterase Negative (NEG) Urine RBC 0/HPF (0-2) Urine WBC Rare/HPF (0-4) Urine Squamous Epithelial Cells Few/LPF Urine Bacteria 0/HPF (0-FEW) Urine Hyaline Casts Occasional/HPF Urine Mucus Marked/LPF White Blood Count 9.9x10^3/uL (4.0-11.0) 9.5x10^3/uL (4.0-11.0) Red Blood Count 5.44x10^6/uL (4.30-5.70) 5.25x10^6/uL (4.30-5.70) Hemoglobin 15.3g/dL (13.0-17.5) 14.8g/dL (13.0-17.5) Hematocrit 47.5% (39.0-53.0) 46.3% (39.0-53.0) Mean Corpuscular Volume 87fL (79-100) 88fL (79-100) Mean Corpuscular Hemoglobin 28pg (25-35) 28pg (25-35) Mean Corpuscular Hemoglobin Concent 32g/dL (31-37) 32g/dL (31-37) Red Cell Distribution Width 15.4% (11.5-14.5) 15.5% (11.5-14.5) Platelet Count 286x10^3/uL (140-400) 288x10^3/uL (140-400) Neutrophils (%) (Auto) 65% (31-73) 66% (31-73) Lymphocytes (%) (Auto) 18% (24-48) 17% (24-48) Monocytes (%) (Auto) 10% (0-9) 11% (0-9) Eosinophils (%) (Auto) 5% (0-3) 6% (0-3) Basophils (%) (Auto) 1% (0-3) 1% (0-3) Neutrophils # (Auto) 6.5x10^3uL (1.8-7.7) 6.3x10^3uL (1.8-7.7) Lymphocytes # (Auto) 1.8x10^3/uL (1.0-4.8) 1.6x10^3/uL (1.0-4.8) Monocytes # (Auto) 1.0x10^3/uL (0.0-1.1) 1.0x10^3/uL (0.0-1.1) Eosinophils # (Auto) 0.5x10^3/uL (0.0-0.7) 0.5x10^3/uL (0.0-0.7) Basophils # (Auto) 0.1x10^3/uL (0.0-0.2) 0.1x10^3/uL (0.0-0.2) Sodium Level 146mmol/L (136-145) 145mmol/L (136-145) 140mmol/L (136-145) Potassium Level 3.4mmol/L (3.5-5.1) 3.6mmol/L (3.5-5.1) 4.1mmol/L (3.5-5.1) Chloride Level 107mmol/L (98-107) 108mmol/L (98-107) 104mmol/L (98-107) Carbon Dioxide Level 28mmol/L (21-32) 27mmol/L (21-32) 28mmol/L (21-32) Anion Gap 11 (6-14) 10 (6-14) 8 (6-14) Blood Urea Nitrogen 16mg/dL (8-26) 14mg/dL (8-26) 15mg/dL (8-26) Creatinine 0.9mg/dL (0.7-1.3) 0.8mg/dL (0.7-1.3) 0.7mg/dL (0.7-1.3) Estimated GFR (Cockcroft-Gault) 82.3 94.2 109.9 Glucose Level 112mg/dL (70-99) 99mg/dL (70-99) 116mg/dL (70-99) Calcium Level 8.8mg/dL (8.5-10.1) 8.6mg/dL (8.5-10.1) 8.4mg/dL (8.5-10.1) Troponin I Quantitative 0.019ng/mL (0.000-0.055) Prostate Specific Antigen Screen 1.7ng/mL (0.0-4.0) Prothrombin Time 14.2SEC (11.7-14.0) Prothromb Time International Ratio 1.2 (0.8-1.1) Uric Acid 4.7mg/dL (3.5-7.2) Total Bilirubin 0.8mg/dL (0.2-1.0) Direct Bilirubin 0.2mg/dL (0.0-0.2) Aspartate Amino Transf (AST/SGOT) 18U/L (15-37) Alanine Aminotransferase (ALT/SGPT) 19U/L (16-63) Alkaline Phosphatase 85U/L (46-116) Lactate Dehydrogenase 582U/L (85-227) Total Protein 7.0g/dL (6.4-8.2) Albumin 3.4g/dL (3.4-5.0) Ptsu-3-Fnruaqkmffmoq 1.7mg/L (0.6-2.4) Hepatitis A IgM Antibody Negative (Negative) Hepatitis B Surface Antigen Negative (Negative) Hepatitis B Core IgM Antibody Negative (Negative) Hepatitis C Antibody <0.1s/co ratio (0.0-0.9) Laboratory Tests Test 05/02/16 04:55 Sodium Level 140mmol/L (136-145) Potassium Level 4.1mmol/L (3.5-5.1) Chloride Level 104mmol/L (98-107) Carbon Dioxide Level 28mmol/L (21-32) Anion Gap 8 (6-14) Blood Urea Nitrogen 15mg/dL (8-26) Creatinine 0.7mg/dL (0.7-1.3) Estimated GFR (Cockcroft-Gault) 109.9 Glucose Level 116mg/dL (70-99) Calcium Level 8.4mg/dL (8.5-10.1) Problem List Problems Medical Problems: (1) Back pain Status: Acute (2) Lymphadenopathy Status: Acute Assessment/Plan LIH repair with mesh ongoing rm for lymphadenopathy add oral pain meds Problems: ANDREAS CONTRERAS [employer] May 02, 2016 09:40
[2016-05-02] MEDS ORDERED: OXYCODONE/APAP 5/325 TABLET. PO PRN (09:45)
[2016-05-02] MEDS: OXYCODONE/APAP 5/325 TABLET. PO PRN ×3 (10:06→15:57)
[2016-05-02 11:00] VITALS: BP 162/80
--- NOTE | 2016-05-02 12:55 | PDOC ---
SUBJECTIVE Subjective Doing well. Tolerating his diet without any difficulty. Denies any shortness of breath. Has had a bowel movement. Using Mars catheter to void. Has had problems in the past with postoperative urinary retention. Pain is controlled. OBJECTIVE Vital Signs Vital Signs Date Time Temp Pulse Resp B/P Pulse Ox O2 Delivery O2 Flow Rate FiO2 05/02/16 11:00 98.1 87 20 162/80 90 Room Air 98.1 05/02/16 10:06 20 Room Air 05/02/16 09:44 20 Room Air 05/02/16 09:14 20 Room Air 05/02/16 08:18 67 143/71 05/02/16 08:00 Room Air 05/02/16 07:00 98.0 67 20 143/71 93 Room Air 98.0 05/02/16 06:30 20 05/02/16 03:47 98.3 77 130/75 92 Room Air 98.3 05/02/16 00:55 16 05/02/16 00:21 20 05/01/16 22:51 98.0 83 138/81 94 Nasal Cannula 3.5 98.0 05/01/16 20:50 97.9 126/76 95 Nasal Cannula 3.5 97.9 05/01/16 20:00 Nasal Cannula 4.0 05/01/16 19:48 88 136/75 05/01/16 18:44 94 143/82 90 Nasal Cannula 4.0 05/01/16 18:15 89 136/76 92 Nasal Cannula 4.0 05/01/16 18:00 92 137/78 93 Nasal Cannula 4.0 05/01/16 17:45 93 137/78 92 Nasal Cannula 4.0 05/01/16 17:30 90 142/72 91 Nasal Cannula 4.0 05/01/16 17:00 Nasal Cannula 4 05/01/16 17:00 99.3 88 20 159/88 94 Nasal Cannula 4 99.3 05/01/16 16:45 88 21 154/86 93 Nasal Cannula 4 05/01/16 16:30 98.1 85 20 149/102 93 Nasal Cannula 4 98.1 05/01/16 16:17 95 Simple Mask 8.0 05/01/16 16:15 98.1 84 20 152/106 95 Simple Mask 10 98.1 05/01/16 16:00 98.1 82 18 146/74 96 Simple Mask 10 98.1 05/01/16 15:45 Mask 10 05/01/16 15:45 98.1 80 16 141/67 93 Simple Mask 10 98.1 05/01/16 14:15 82 22 95 Nasal Cannula 2 05/01/16 14:10 97.8 82 22 148/76 89 Room Air 97.8 05/01/16 13:46 83 24 93 Nasal Cannula 4.0 05/01/16 13:45 22 93 Nasal Cannula 4.0 05/01/16 13:41 84 23 93 Nasal Cannula 4.0 05/01/16 13:36 85 25 90 Nasal Cannula 4.0 05/01/16 13:31 83 25 92 Nasal Cannula 2.0 I & O Intake and Output 05/02/16 07:00 Intake Total 1470 ml Output Total 980 ml Balance 490 ml Intake Oral 120 ml IV Total 1350 ml Output Urine Total 935 ml Drainage Total 20 ml Estimated Blood Loss 25 ml # Bowel Movements 1 PHYSICAL EXAM Physical Exam General: No acute distress. Standing up and walking around in the room. Mental status: Alert and oriented. Chest: Clear to auscultation bilaterally. Fair air movement throughout without any rales or wheezes. CV: Normal rate. Regular rhythm. 1/6 systolic murmur at the left sternal border. Abdomen: Occasional bowel sounds. Soft, obese. Not distended. Minimal appropriate tenderness. No guarding. No rebound. Dressing in the left inguinal area is intact, dry Extremities: No lower extremity edema ASSESSMENT/PLAN Assessment/Plan 1. Lymphadenopathy: Uncertain etiology of the lymphoma is obviously consideration. Biopsy results are pending. Follow up with oncology next week after biopsy results. 2. Incarcerated left inguinal hernia: Postoperative day #2 status post repair with mesh. Continue current treatment. Discharges afternoon if okay with surgery. 3. History of urinary retention: DC Mars now. Check postvoid residual prior to discharge and replace Mars if needed. 4. Low back pain: Oral pain medications as needed. 5. Hypertension: Resume usual home medications. 6. Disposition: Home today if okay with general surgery and follow up with oncology as an outpatient when pathology results back probably to end of next week. Problems: COMMENT Lab Laboratory Tests Test 05/02/16 04:55 Sodium Level 140mmol/L (136-145) Potassium Level 4.1mmol/L (3.5-5.1) Chloride Level 104mmol/L (98-107) Carbon Dioxide Level 28mmol/L (21-32) Anion Gap 8 (6-14) Blood Urea Nitrogen 15mg/dL (8-26) Creatinine 0.7mg/dL (0.7-1.3) Estimated GFR (Cockcroft-Gault) 109.9 Glucose Level 116mg/dL (70-99) Calcium Level 8.4mg/dL (8.5-10.1) NIRALI HERNANDEZ MD May 02, 2016 12:55
--- NOTE | 2016-05-02 12:59 | DISCH ---
DISCHARGE INSTRUCTIONS Condition on Discharge Condition on Discharge: Stable Activity After Discharge Activity Instructions for Disc: Activity as tolerated (and per general surgery) Diet after Discharge Diet after Discharge: Cardiac Checks after Discharge DC Comment: Mars placement if postvoid residual elevated Contacting the after DC Call your doctor for: If your condition worsens Follow-Up Follow up with: Dr Sutton in 1-2 weeks Follow Up With: Dr Michel, oncology next week NIRALI HERNANDEZ MD May 02, 2016 12:59
[2016-05-02] MEDS ORDERED: OXYC-250 PO (13:04)
[2016-05-02] MEDS ORDERED: PANT40TA5 PO (13:04)
[2016-05-02] MEDS ORDERED: FINA5TAB4 PO (13:04)
[2016-05-02] MEDS ORDERED: AMLO10TA2 PO (13:04)
[2016-05-02] MEDS ORDERED: ATOR20TA58 PO (13:04)
[2016-05-02 14:55] VITALS: BP 124/64
--- NOTE | 2016-05-05 15:00 | PATHOLOGY ---
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 SEE COMMENT. COMMENT: Sections of the abdominal lymph node CT guided biopsy show extensive effacement of the ricky architecture by proliferation of predominantly large atypical lymphoid cells. The atypical lymphoid cells have enlarged, rounded to ovoid to irregular nuclei having a finely dispersed chromatin and inconspicuous nucleoli. Mitotic figures are readily demonstrated. There are apoptotic cells. There is no coagulative tumor necrosis. A portion of the specimen is submitted for lymphocyte marker studies by flow cytometry. The specimen has a viability of 94.2%. Lymphocytes comprise 92.2% of total cells. T-cells comprise 19.6% of lymphoid cells and show a CD4/CD8 ratio of 2.7. NK-cells comprise 0.6% of lymphoid cells. B-cells comprise 76.8% of lymphoid cells and express CD19, moderate to bright CD20, CD10, and CD38, and are negative for CD5, CD11c, CD23, and surface light chain. The B-cells show cytoplasmic monotypic kappa light chain. The monoclonal B-cells include a large cell subset comprising 58% of total cells. To confirm flow cytometric findings and characterize the target cells in a tissue architectural context, a panel of immunoperoxidase stains is obtained and yields the following results: CD20: atypical lymphoid cells positive CD3: atypical lymphoid cells negative; small population of admixed small lymphocytes positive CD5: atypical lymphoid cells negative; small population of admixed small lymphocytes positive BCL2: atypical lymphoid cells positive BCL6: atypical lymphoid cells positive CD10: atypical lymphoid cells positive MUM-1: atypical lymphoid cells negative Ki67: atypical lymphoid cells show a proliferation index of approximately 60%-70%. 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 The case is also examined by Dr. Joana Coker, who concurs with the diagnosis. (JPM:all; d/t: 05/04/2016) Immunoperoxidase stains performed: CD20, CD3, CD5, BCL2, BCL6, CD10, MUM-1, ki67, CD21, cyclin D1 REPORT ELECTRONICALLY SIGNED BY: Jordan Ordoñez M.D. DATE/TIME: 05/05/2016 14:59 * * * * * * * * GROSS PATHOLOGY: Received in formalin labeled "Jordan Aguayo, abdominal adenopathy," are three distinct needle cores of estes soft tissue ranging from 0.5 to 1.4 cm in length, which are submitted entirely in cassette A1. (CAA; 05/01/2016) INITIAL CPT CODE(S): A; 88403, 28060, 88904, 54077, 87157, 66341, 68922, 64830, 12650, 45237, 90996 Professional services performed [place] [place] [address] Technical services performed by [facility] at [address] [place] [address], [facility], [place] [address] [address]. SPECIMEN(S) RECEIVED: A.Abdominal mass CLINICAL HISTORY: Adenopathy, abdominal mass PATIENT: JORDAN AGUAYO /AGE: 7 1940 (Age: 75) PATIENT #: [id number] ALT CASE #: SPECIMEN COLLECTION DATE: 05/01/2016 SPECIMEN RECEIVED DATE: 05/01/2016 [facility] - [address] [place] [id number] - PHONE: [phone] * * * END OF REPORT * * *
[2016-05-10] MEDS ORDERED: POLY17PO5 PO (20:44)
[2016-05-12] MEDS ORDERED: OMEP20CA9 PO (14:51)
[2016-05-12] MEDS ORDERED: SENN-37 PO (14:52)
[2016-05-12] MEDS ORDERED: LOSA100T6 PO (14:52)
[2016-05-12] MEDS ORDERED: ASPI325T4 PO (14:53)
[2016-05-12] MEDS ORDERED: PSYL0.5214 PO (14:54)
--- NOTE | 2016-05-12 20:00 | PDOC ---
Provider Note Provider Note See discharge summary dictation #[id number] NIRALI HERNANDEZ MD May 12, 2016 20:00
--- NOTE | 2016-05-13 03:29 | DS ---
DATE OF DISCHARGE: 05/02/2016 ATTENDING PHYSICIAN: Dr. Whit Michel. CHIEF COMPLAINT: Back pain. HISTORY OF PRESENT ILLNESS: The patient is a 75-year-old male who presented to the Emergency Room night because of one week duration of low back pain. He did not radiate, he was not having any pain in the legs. During the evaluation in the Emergency Room, he was found to have mesenteric lymphadenopathy and bilateral inguinal hernias. The patient had noted that he had decreased appetite over the 2 weeks prior to admission, but had otherwise been doing well. There were no fevers. HOSPITAL COURSE: The patient was admitted. He was seen in consultation with General Surgery. He did undergo operative repair of an incarcerated left inguinal hernia. This was done on 05/01/2016, it was repaired with mesh. Regarding his lymphadenopathy, Interventional Radiology was consulted and a biopsy was done of one of the enlarged nodes, pathology of which is pending at the time of this dictation. Oncology was consulted regarding the lymphadenopathy and distinct possibility that this could be consistent with underlying malignancy such as lymphoma. His back pain was relatively well controlled with pain medications. On postoperative day #1, he was tolerating his diet. His pain was controlled. He was cleared for release by General Surgery. He was also cleared for release by oncology with the plan for followup when the pathology should be back in the next week. At the time of discharge, he was tolerating his diet. He had a Mars catheter and it was removed. He had a normal postvoid residual as he has had issues with that in the past postoperatively with some urinary retention. He was afebrile. PHYSICAL EXAMINATION: VITAL SIGNS: Stable. GENERAL: He was alert and in no distress. CHEST: Clear to auscultation with fair air movement throughout. HEART: Had a regular rate and rhythm. There was a 1/6 systolic murmur at the left sternal border. ABDOMEN: Had occasional bowel sounds and was soft and nondistended. There was minimal appropriate tenderness. There is no guarding or rebound. The dressing in the left inguinal area was clean, dry and intact. EXTREMITIES: There was no lower extremity edema. LABORATORY DURING HOSPITALIZATION WBC 9.5, hemoglobin 14.8, hematocrit 46.3, platelets 288. INR was 1.2. Sodium 140, potassium 4.1, BUN 15, creatinine 0.7. CT scan showed interval development of lymphadenopathy in the abdomen and pelvis, suspicious for a neoplastic process such as lymphoma, left inguinal hernia containing fat in sigmoid colon with no evidence of bowel obstruction, fat containing right inguinal hernia, small hiatal hernia. CT of the chest showed no thoracic lymphadenopathy. There were calcified coronary arteries. There was calcification of the aortic valve reflux. No pericardial effusion, no lung infiltrate. DISCHARGE DIAGNOSES: 1. Lymphadenopathy, uncertain etiology at present, although lymphoma is a consideration status post biopsy with results pending at this time. 2. Incarcerated left inguinal hernia, status post surgical repair with mesh. 3. Low back pain. 4. Hypertension. DISCHARGE DIET: Cardiac diet. DISCHARGE ACTIVITY: As tolerated and per General Surgery's recommendations. FOLLOWUP: The patient is to follow up with General Surgery per their recommendations in approximately 1-2 weeks. He is to follow up with Oncology in approximately 1 week. He is to follow up with his primary care provider in 1-2 weeks. DISCHARGE MEDICATIONS: At the time of discharge, amlodipine 10 mg p.o. daily, Lipitor 20 mg p.o. daily, Percocet 10/325 one to two p.o. q. 4-6 hours p.r.n. #35. NIRALI HERNANDEZ MD DR: KERVIN/gurmeet JOB#: [id number] / [id number]
== END 2016-05-02 17:55 | disposition home or self-care (01) | DRG 351 ==
LOC: ER 21:19 → 5 NORTH 23:30
PROVIDERS: ADMIT Family Medicine; ATTEND Family Medicine
PROC: 0YU60JZ Supplement Left Inguinal Region with Synthetic Substitute, Open Approach (ICD-10-PCS; principal; 2016-04-30)
PROC: 07BD3ZX Excision of Aortic Lymphatic, Percutaneous Approach, Diagnostic (ICD-10-PCS; 2016-05-01)
DX: K40.30 Unilateral inguinal hernia, with obstruction, without gangrene, not specified as recurrent (principal); C85.90 Non-Hodgkin lymphoma, unspecified, unspecified site; E87.0 Hyperosmolality and hypernatremia; N99.89 Other postprocedural complications and disorders of genitourinary system; R01.1 Cardiac murmur, unspecified; R05 Cough; R09.81 Nasal congestion; R33.8 Other retention of urine; E66.9 Obesity, unspecified; E78.00 Pure hypercholesterolemia, unspecified; E78.5 Hyperlipidemia, unspecified; E87.6 Hypokalemia; J45.909 Unspecified asthma, uncomplicated; Z96.652 Presence of left artificial knee joint; R31.9 Hematuria, unspecified; I35.0 Nonrheumatic aortic (valve) stenosis; I10 Essential (primary) hypertension; Z68.35 Body mass index [BMI] 35.0-35.9, adult; Z80.42 Family history of malignant neoplasm of prostate
CPT/HCPCS: 36415; 49180; 71260; 74177; 77012; 80048; 80074; 80076; 81001; 82232; 83615; 84484; 84550; 85027; 85610; 88184; 88185; 88305; 88307; 88341; 88342; 88360; 93005; 94250; 94640; 96374; 96375; C1769; C1781; C1892; G0103; J0690; J1100; J1170; J2250; J2270; J2370; J2405; J2704; J3010; J7120; Q9967; 99285-25; G0641

== ENCOUNTER 2016-05-18 10:45 | Day surgery (SDC) | payer MEDICARE ==
[~2016-05-18] VITALS: Ht 154.9 cm; Wt 122.0 kg
[~2016-05-18 10:45] MED LIST: AMLO10TA2 PO; ASPI325T4 PO; ATOR20TA58 PO; CEFAZOLIN 2GM PREMIX 50 ML IV ONE; FENTANYL PF 100 MCG/2 ML VIAL. IV PRN; FINA5TAB4 PO; HEPARIN S0DIUM 5,000 UNIT in IV NORMAL SALINE 500ML BAG 500 ML IRR ONE; HYDROMORPHONE 2 MG/ML VIAL. IV PRN; IV RINGERS,LACTATED 1000ML 1,000 ML IV SCH; LIDOCAINE 1% 1 ML SYRINGE. ID PRN; LOSA100T6 PO; MORPHINE SULFATE 2 MG/ML DISP.SYRIN. IV PRN; OMEP20CA9 PO; ONDANSETRON PF 4 MG/2 ML VIAL. IV PRN; OXYC-250 PO; PANT40TA5 PO; POLY17PO5 PO; PROCHLORPERAZINE 10 MG/2 ML VIAL. IV PRN; PSYL0.5215 PO; SENN-37 PO
[2016-05-18] MEDS ORDERED: DESFLURANE 31 TO 60 MINUTES IH ONE (11:21)
[2016-05-18] MEDS ORDERED: ONDANSETRON PF 4 MG/2 ML VIAL. ONE (11:21)
[2016-05-18] MEDS ORDERED: PROPOFOL 20 ML IV ONE (11:21)
[2016-05-18] MEDS ORDERED: LIDOCAINE 2% 100 MG/5 ML DISP.SYRIN. ONE (11:21)
[2016-05-18] MEDS ORDERED: FENTANYL PF 100 MCG/2 ML VIAL. ONE (11:21)
[2016-05-18] MEDS ORDERED: DEXAMETHASONE SOD PHOS 20 MG/5 ML VIAL. ONE (11:21)
[2016-05-18] MEDS ORDERED: CEFAZOLIN 2GM PREMIX 50 ML IV ONE (11:38)
[2016-05-18] MEDS ORDERED: BUPIVAC MPF-EPI 0.5%-1:200000 30 ML VIAL. ONE (11:50)
[2016-05-18] MEDS ORDERED: BUPIVACAINE MPF 0.5% 30 ML VIAL. ONE (11:50)
--- NOTE | 2016-05-18 12:40 | DISCH ---
DISCHARGE INSTRUCTIONS Condition on Discharge Condition on Discharge: Stable Activity After Discharge Activity Instructions for Disc: Activity as tolerated, Avoid exertion Lifting Instructions after Dis: No heavy lifting Driving Instructions after Dis: Do not drive today Diet after Discharge Diet after Discharge: Regular Wound Incision Care Other wound/incision instructi: may shower Wednesday, leave dressing on Follow-Up Follow up with: Jose two weeks KAELYN MORFIN MD May 18, 2016 12:40
--- NOTE | 2016-05-18 12:46 | PDOC ---
BRIEF OPERATIVE NOTE Date: May 18, 2016 Pre-Op Diagnosis needs venous access for chemotherapy Post-Op Diagnosis same Procedure Performed placement of a left subclavian power port Surgeon Jose Anesthesia Type: General Blood Loss 10cc IV Fluid 700cc Specimens Obtained none Findings post op CXR shows tip of catheter in the SVC without evidence of a pneumothorax Complications none Additional Remarks # [id number] KAELYN MORFIN MD May 18, 2016 12:46
[2016-05-18 13:45] VITALS: BP 158/88
--- NOTE | 2016-05-18 13:53 | RAD ---
Indication verify Port-A-Cath placement. A single view of the chest was obtained and comparison is made to a study May 10, 2016. There is some minimal volume loss at the left lung base likely reflecting atelectasis. There are healed right rib fractures. A definite acute parenchymal infiltrate is not seen. A left Port-A-Cath is noted. The tip is appropriately positioned in the distal SVC. There is a subtle transverse line at the left lung apex. This may represent a dressing. A tiny apical pneumothorax is not entirely excluded. IMPRESSION: Appropriately positioned left Port-A-Cath. Probable artifactual subtle line at the left lung apex. Tiny pneumothorax is not entirely excluded
--- NOTE | 2016-05-18 19:42 | OP ---
DATE OF SURGERY: 05/18/2016 PREOPERATIVE DIAGNOSIS: Needs venous access for chemotherapy. POSTOPERATIVE DIAGNOSIS: Needs venous access for chemotherapy. PROCEDURE: Placement of a left subclavian PowerPort. SURGEON: Kaelyn Morfin MD ANESTHESIA: General. ESTIMATED BLOOD LOSS: 10. IV FLUIDS: 700. INDICATIONS: The patient is a 75-year-old gentleman with a recent diagnosis of a B-cell lymphoma, brought for placement of a port. DESCRIPTION OF PROCEDURE: The patient brought to the operating suite, given general LMA and the left infraclavicular area was prepped and draped in usual sterile fashion. A 0.5% Marcaine plain was infiltrated into the skin and subcutaneous tissue a fingerbreadth below the collar bone at the junction medial two thirds to lateral third. With the bed in Trendelenburg, a seeker needle was used to find the subclavian vein and a flexible guidewire was passed under fluoroscopic observation into superior vena cava. Table taken out of Trendelenburg, pocket incision infiltrated with local anesthetic with epinephrine, incised and developed. Catheter was then laid on the patient's chest with fluoroscopic assessment, cut to an appropriate length. Catheter was then tunneled from the insertion site to the pocket site where it was attached to the reservoir. The reservoir was then seated into the pocket and the bed placed back in Trendelenburg. Under fluoroscopic observation, the dilator and sheath were passed over the wire. The wire was removed, the dilator was removed and the catheter was threaded through the sheath and the sheath was then removed. Good flow into and out of the port at completion. Table returned to level, pocket incision closed with interrupted 3-0 Vicryl in the subcutaneous tissue and a subcuticular 4-0 Monocryl with Steri-Strips for the skin. The port was aspirated and flushed final time, sterile dressing applied. Postop upright chest x-ray showed the tip of the catheter to reside in superior vena cava without evidence of pneumothorax. The patient was awakened from his anesthetic and taken to the recovery room in satisfactory condition. KAELYN MORFIN MD DR: NAE/gurmeet JOB#: [id number] / [id number]
[2016-05-19] MEDS ORDERED: CEFAZOLIN 2GM PREMIX 50 ML IV PRN (06:00)
== END 2016-05-18 14:07 | disposition home or self-care (01) ==
LOC: SURG 10:45
PROVIDERS: ATTEND Surgery
DX: Z45.2 Encounter for adjustment and management of vascular access device (principal); C85.10 Unspecified B-cell lymphoma, unspecified site; E66.9 Obesity, unspecified; I10 Essential (primary) hypertension; E78.00 Pure hypercholesterolemia, unspecified; Z96.652 Presence of left artificial knee joint
CPT/HCPCS: 36561; 77001; C1769; C1788; J0690; J1100; J2405; J2704; J3010; J3490; J7040; J7120; 36556; 71010

== ENCOUNTER 2016-07-16 13:07 | Emergency (ER) | payer MEDICARE ==
[~2016-07-16] VITALS: Ht 185.4 cm; Wt 98.4 kg
[~2016-07-16 13:07] MED LIST changes: -CEFAZOLIN 2GM PREMIX 50 ML IV ONE; -FENTANYL PF 100 MCG/2 ML VIAL. IV PRN; -HEPARIN S0DIUM 5,000 UNIT in IV NORMAL SALINE 500ML BAG 500 ML IRR ONE; -HYDROMORPHONE 2 MG/ML VIAL. IV PRN; -IV RINGERS,LACTATED 1000ML 1,000 ML IV SCH; -LIDOCAINE 1% 1 ML SYRINGE. ID PRN; -MORPHINE SULFATE 2 MG/ML DISP.SYRIN. IV PRN; -ONDANSETRON PF 4 MG/2 ML VIAL. IV PRN; -PROCHLORPERAZINE 10 MG/2 ML VIAL. IV PRN
[2016-07-16] MEDS ORDERED: DILTIAZEM IV PUSH 25 MG/5 ML VIAL. ONE (13:14)
[2016-07-16] MEDS ORDERED: ADENOSINE 6 MG/2 ML VIAL. IV ONE ×2 (13:14→14:00)
--- NOTE | 2016-07-16 13:25 | PHYS DOC ---
Past Medical History Past Medical History: High Cholesterol, Hypertension Additional Past Medical Histor: HEART MURMUR Past Surgical History: Knee Replacement Additional Past Surgical Histo: NECK SURGERY, HERNIA REPAIR Alcohol Use: Rarely Drug Use: None Adult General HPI HPI Patient is a 75 year old male who presents with shortness of breath, hypoxemia, tachycardia. According to EMS he was in the middle physical therapy when he got short of breath and dropped his sats to 80% he was given 2 L which brought up to 92% and they noticed his heart rate in the 180s. The patient is essentially averbal and unable to help with any history. According to his records she has a history of A. fib, SVT, Review of Systems Review of Systems Unable to assess secondary to dysarthria Current Medications Current Medications Current Medications Medications (Trade) Dose Ordered Sig/Hiro Start Time Stop Time Status Last Admin Dose Admin Adenosine (Adenocard) 6 mg STK-MED ONCE 07/16/16 13:14 07/16/16 13:15 DC Adenosine 6 mg 6 mg 1X ONCE 07/16/16 14:00 07/16/16 14:01 DC 07/16/16 13:17 6 MG Diltiazem HCl (Cardizem) 5 mg 1X ONCE 07/16/16 14:00 07/16/16 14:01 DC 07/16/16 13:54 5 MG Diltiazem HCl/ Dextrose (Cardizem) 125 ml @ 10 mls/hr 1X ONCE 07/16/16 14:00 07/17/16 02:29 07/16/16 13:47 10 MLS/HR Allergies Allergies Allergies Coded Allergies Type Severity Reaction Last Updated Verified simvastatin Allergy Intermediate Unknown 05/18/16 Yes Physical Exam Physical Exam Constitutional: Well developed, well nourished, no acute distress, non-toxic appearance. [] HENT: Normocephalic, atraumatic, bilateral external ears normal, oropharynx moist, no oral exudates, nose normal. [] Eyes: PERRLA, EOMI, conjunctiva normal, no discharge. [] Neck: Normal range of motion, no tenderness, supple, no stridor. [] Cardiovascular: Heart rate irregular rhythm, tachycardia, no murmur [] Lungs & Thorax: Bilateral breath sounds decreased at the bases Abdomen: Bowel sounds normal, soft, no tenderness, no masses, no pulsatile masses. [] Skin: Warm, dry, no erythema, no rash. [] Back: No tenderness, no CVA tenderness. [] Extremities: No tenderness, no cyanosis, no clubbing, ROM intact, no edema. [] Neurologic: Alert and interactive, dysarthria Current Patient Data Vital Signs Vital Signs Date Time Temp Pulse Resp B/P Pulse Ox O2 Delivery O2 Flow Rate FiO2 07/16/16 14:00 148 43 134/92 95 Venturi Mask 6 07/16/16 13:12 98.8 98.8 Lab Values Laboratory Tests Test 07/16/16 13:12 White Blood Count 3.2x10^3/uL (4.0-11.0) L Red Blood Count 2.85x10^6/uL (4.30-5.70) L Hemoglobin 9.1g/dL (13.0-17.5) L Hematocrit 29.2% (39.0-53.0) L Mean Corpuscular Volume 102fL (79-100) H Mean Corpuscular Hemoglobin 32pg (25-35) Mean Corpuscular Hemoglobin Concent 31g/dL (31-37) Red Cell Distribution Width 27.7% (11.5-14.5) H Platelet Count 251x10^3/uL (140-400) Neutrophils (%) (Auto) 79% (31-73) H Lymphocytes (%) (Auto) 13% (24-48) L Monocytes (%) (Auto) 8% (0-9) Eosinophils (%) (Auto) 0% (0-3) Basophils (%) (Auto) 0% (0-3) Neutrophils # (Auto) 2.6x10^3uL (1.8-7.7) Lymphocytes # (Auto) 0.4x10^3/uL (1.0-4.8) L Monocytes # (Auto) 0.3x10^3/uL (0.0-1.1) Eosinophils # (Auto) 0.0x10^3/uL (0.0-0.7) Basophils # (Auto) 0.0x10^3/uL (0.0-0.2) Segmented Neutrophils % 73% (35-66) H Band Neutrophils % 12% (0-9) H Lymphocytes % 7% (24-48) L Atypical Lymphocytes % (Manual) 1% (0-0) H Monocytes % 6% (0-10) Myelocytes % 1% (0-0) H Nucleated Red Blood Cells 3 Platelet Estimate Adequate (ADEQUATE) Polychromasia Slight Anisocytosis Marked Macrocytosis Slight Tear Drop Cells Occ Ovalocytes Mod Schistocytes Few Prothrombin Time 16.0SEC (11.7-14.0) H Prothrombin Time INR 1.4 (0.8-1.1) H Sodium Level 146mmol/L (136-145) H Potassium Level 4.7mmol/L (3.5-5.1) Chloride Level 108mmol/L (98-107) H Carbon Dioxide Level 27mmol/L (21-32) Anion Gap 11 (6-14) Blood Urea Nitrogen 33mg/dL (8-26) H Creatinine 1.7mg/dL (0.7-1.3) H Estimated GFR (Cockcroft-Gault) 39.5 Glucose Level 103mg/dL (70-99) H Calcium Level 8.6mg/dL (8.5-10.1) Magnesium Level 2.1mg/dL (1.8-2.4) Total Bilirubin 1.2mg/dL (0.2-1.0) H Direct Bilirubin 0.6mg/dL (0.0-0.2) H Aspartate Amino Transferase (AST) 86U/L (15-37) H Alanine Aminotransferase (ALT) 86U/L (16-63) H Alkaline Phosphatase 77U/L (46-116) Creatine Kinase 44U/L (39-308) Creatine Kinase MB (Mass) 1.8ng/mL (0.0-3.6) Creatine Kinase MB Relative Index % (0-4) Troponin I Quantitative 0.048ng/mL (0.000-0.055) CB-Jfp-C-Type Natriuretic Peptide 03419nc/mL (0-449) H Total Protein 4.9g/dL (6.4-8.2) L Albumin 2.4g/dL (3.4-5.0) L Thyroid Stimulating Hormone (TSH) 1.673uIU/mL (0.358-3.74) Laboratory Tests 07/16/16 13:12 Laboratory Tests 07/16/16 13:12 EKG EKG EKG shows irregular rhythm with rate is 164 bpm, ST depressions noted in the lateral leads, normal axis, QTC 490 ms, as interpreted by me. Radiology/Procedures Radiology/Procedures [facility] [address] [place] [address] IMAGING REPORT Signed PATIENT: JORDAN AGUAYO ACCOUNT: [id number] : 1940 LOCATION: ER AGE: 75 SEX: M EXAM STATUS: PRE ER ORD. PHYSICIAN: RICKIE GAMBOA MD REASON: SVT PROCEDURE: PORTABLE CHEST 1V Exam: AP portable chest. History: Supraventricular tachycardia, shortness of breath. Comparison: 05/18/2016. Findings: Cardiac silhouette appears within normal limits for size. Left chest port and catheter are unchanged. Aortic atherosclerosis is noted. Mild bibasilar densities are favored to be atelectasis. No pneumothorax or large pleural effusion is identified. No failure is evident. Impression: 1. Bibasilar atelectasis. DICTATED and SIGNED BY: EAMON STEWARD MD DATE: 07/16/16 1343 CC: RICKIE GAMBOA MD; EAMON KERR MD ~ Impressions: A. fib with RVR, on a diltiazem drip Dysphagia Diffuse large B-cell lymphoma Course & Med Decision Making Course & Med Decision Making Pertinent Labs and Imaging studies reviewed. (See chart for details) She presented with tachycardia in the 150s to 160s, 6 mg adenosine slowed it down and it appeared to be a fluttering pattern and then it restarted back to the same rate. Patient was given 5 mg of diltiazem IV and then started on 5 mg per hour drip. Family is requesting the patient be transferred to since he has been in the past and they have always medical records. Patient is in stable condition at this time being transferred. Dr. Shant Kim accepting physician via the transfer nurses at . Critical care time 55 minutes of critical care time was used on this patient excluding procedures. Dragon Disclaimer Dragon Disclaimer This electronic medical record was generated, in whole or in part, using a voice recognition dictation system. Departure Departure Impression: Primary Impression: Atrial fibrillation with RVR Disposition: 05 TRANSFER OTHER Condition: IMPROVED Referrals: EAMON KERR MD (PCP) RICKIE GAMBOA MD Jul 16, 2016 13:25
--- NOTE | 2016-07-16 13:30 | EKG ---
[facility] [address] [place] [address] Test Date: 2016-07-16 Test Time: 13:13:44 Pat Name: JORDAN AGUAYO Department: Room: Gender: M Architectural Project Manager: : 1940 Requested By: RICKIE GAMBOA Order Number: [id number] Reading MD: Measurements Intervals [place] Rate: 164 P: CO: QRS: 16 QRSD: 110 T: -155 QT: 294 QTc: 490 Interpretive Statements IRREGULAR RHYTHM, NO P-WAVE FOUND QRS(T) CONTOUR ABNORMALITY CONSIDER ANTEROSEPTAL MYOCARDIAL DAMAGE ST & T ABNORMALITY, CONSIDER ANTEROLATERAL ISCHEMIA OR LEFT VENTRICULAR STRAIN INFEROLATERAL ISCHEMIA OR LEFT VENTRICULAR STRAIN ABNORMAL ECG RI6.01 No previous ECG available for comparison
[2016-07-16 13:38] LABS: BASO % 0 % (0-3); EOS % 0 % (0-3); HEMATOCRIT 29.2 % (39.0-53.0); HEMOGLOBIN 9.1 g/dL (13.0-17.5); LYMPH # 0.4 x10^3/uL (1.0-4.8); LYMPH % 13 % (24-48); MEAN CORPUSCULAR HEMOGLOBIN 32 pg (25-35); MEAN CORPUSCULAR HGB CONC 31 g/dL (31-37); MEAN CORPUSCULAR VOLUME 102 fL (79-100); MONO % 8 % (0-9); NEUT % 79 % (31-73); PLATELET COUNT 251 x10^3/uL (140-400); RED BLOOD COUNT 2.85 x10^6/uL (4.30-5.70); RED CELL DISTRIBUTION WIDTH 27.7 % (11.5-14.5); WHITE BLOOD COUNT 3.2 x10^3/uL (4.0-11.0)
[2016-07-16 13:47] LABS: INR 1.4 (0.8-1.1)
--- NOTE | 2016-07-16 13:47 | RAD ---
Exam: AP portable chest. History: Supraventricular tachycardia, shortness of breath. Comparison: 05/18/2016. Findings: Cardiac silhouette appears within normal limits for size. Left chest port and catheter are unchanged. Aortic atherosclerosis is noted. Mild bibasilar densities are favored to be atelectasis. No pneumothorax or large pleural effusion is identified. No failure is evident. Impression: 1. Bibasilar atelectasis.
[2016-07-16 13:50] LABS: CALCIUM 8.6 mg/dL (8.5-10.1); CREATININE 1.7 mg/dL (0.7-1.3); GFR 39.5; POTASSIUM 4.7 mmol/L (3.5-5.1)
[2016-07-16 13:56] LABS: ALBUMIN 2.4 g/dL (3.4-5.0); DIRECT BILIRUBIN 0.6 mg/dL (0.0-0.2); MAGNESIUM 2.1 mg/dL (1.8-2.4); TOTAL BILIRUBIN 1.2 mg/dL (0.2-1.0); TOTAL PROTEIN 4.9 g/dL (6.4-8.2)
[2016-07-16] MEDS ORDERED: DILTIAZEM IV PUSH 25 MG/5 ML VIAL. IVP ONE (14:00)
[2016-07-16] MEDS ORDERED: DILTIAZEM 125 MG in IV DEXTROSE 5% 100 ML IV ONE ×2 (14:00→22:30)
[2016-07-16 14:04] LABS: CKMB MASS 1.8 ng/mL (0.0-3.6); CREATINE KINASE 44 U/L (39-308)
[2016-07-16 14:16] LABS: NUCLEATED RBC 3
[2016-07-16 14:19] LABS: ANISOCYTOSIS MARKED; OVALOCYTES MOD; PLT ESTIMATE ADEQUATE (ADEQUATE); POLYCHROMASIA SLIGHT; SCHISTOCYTES FEW; TEAR DROP CELLS OCC
[2016-07-16 17:45] VITALS: BP 157/96
== END 2016-07-16 22:16 | disposition short-term general hospital (02) ==
LOC: ER 13:07
DX: I48.0 Paroxysmal atrial fibrillation (principal); I10 Essential (primary) hypertension; E78.00 Pure hypercholesterolemia, unspecified; Z98.890 Other specified postprocedural states; Z88.8 Allergy status to other drugs, medicaments and biological substances
CPT/HCPCS: 71010; 80048; 80076; 82550; 82553; 83735; 83880; 84443; 84484; 85007; 85027; 85610; 93005; 96365; 96366; 96375; 99291; J0153; J3490